=== PATIENT | female | born 1955 | race Caucasian/White ===

== ENCOUNTER 2022-02-07 13:48 | Outpatient (RCR) | payer MEDICARE, SELFPAY | END 2022-08-22 16:00 | disposition home or self-care (01) | LOC: HO.WCC 13:48 | PROVIDERS: PCP Internal Medicine; Visit Provider Surgery | DX: L98.491 Non-pressure chronic ulcer of skin of other sites limited to breakdown of skin (principal); L30.9 Dermatitis, unspecified; F17.210 Nicotine dependence, cigarettes, uncomplicated; F11.20 Opioid dependence, uncomplicated; Z79.2 Long term (current) use of antibiotics | CPT/HCPCS: 97597; 97602; 99212; 99213; 99214 ==

== ENCOUNTER 2023-07-03 00:02 | Emergency (ER) | payer MEDICARE, SELFPAY ==
[2023-07-03 00:44] VITALS: BP 138/85; PULSE 84; RESP 16; TEMP 36.6; O2SAT 95; BMI 34.3
--- NOTE | 2023-07-03 01:52 | PC.NURSE ---
Pt presented to registration asking to speak to someone in the back and was directed to this RN. Pt stated this is taking to long, everyone else has gone but me . RN apologized for the inconvenience and made her aware that staff is trying to move as fast as they can at this time. Pt has been present in the ER for less than 2 hours. She asked if she would be seen within the next hour and this RN attempted to explain that I could not confirm that for her as I am unsure how long it would take for the provider to see her. This RN offered to speak with the primer charger on her behalf to try and get more information regarding an estimate as to when she will be brought back to a room but she declined. After leaving triage, the pt could be heard saying honey come on lets go this is going to take too long . The pt was awake and alert, ambulating with cane and conversing in full/complete sentences. She was observed to ambulate out of the ed with cane with gait identified as baseline from previous observations in triage.
== END 2023-07-03 01:55 | disposition left against medical advice (07) ==
LOC: HO.ED 01:57
PROVIDERS: Emergency Provider Emergency Medicine; PCP Internal Medicine
DX: M79.601 Pain in right arm (principal)
CPT/HCPCS: 99281

== ENCOUNTER 2023-12-10 10:26 | Emergency (ER) | payer MEDICARE, SELFPAY ==
--- NOTE | ~2023-12-10 | XR_ITS ---
EXAMINATION: XR FOOT, LEFT CLINICAL INFORMATION: Tripped on rug at her doctor's office one week ago COMPARISON: None available. TECHNIQUE: AP, lateral, and oblique views of the left foot. FINDINGS: There is marked soft tissue swelling on the dorsum of the foot however some of this may be secondary to adipose tissue. Please correlate clinically. There is a short fourth metatarsal and fourth digit. There is no ankle joint effusion. No acute fractures are seen. No significant arthritic changes are present. XR/XR foot LT min 3V IMPRESSION: No evidence of an acute osseous injury. Marked soft tissue swelling on the dorsum of the foot.
[2023-12-10 10:28] VITALS: BP 162/74; PULSE 66; RESP 16; TEMP 36.6; O2SAT 96; BMI 29.5
--- NOTE | 2023-12-10 12:57 | ED.GENADULT ---
HPI - General Adult General Chief complaint: Extremity Injury, Lower Stated complaint: trip inj to l foot Time Seen by Provider: 12/10/23 12:56 Source: patient Mode of arrival: ambulatory Limitations: no limitations History of Present Illness ED Provider: dianne DISLA narrative: Patient is a 68-year-old female presenting to the emergency department with complaint of ongoing left foot pain and swelling after she tripped on a rug and hit her foot against the coffee table 6 days ago. She denies head strike or loss of consciousness at the time of the fall. She denies neck or back pain. She has not anticoagulated. She reports that she has chronic swelling to her left lower leg and that this is not new. Her only complaint at this time is pain and swelling to the lateral aspect of her left foot. Denies any weakness, numbness, tingling. Has been able to ambulate without difficulty. complaint: Left foot pain Onset (ago): day(s) Radiation: non-radiation Severity: moderate Quality: aching Pain Consistency: constant Relieving factors: rest Exacerbating factors: movement Associated symptoms: denies other symptoms Treatments prior to arrival: other (Tylenol) Related Data Allergies Allergy/AdvReac Type Severity Reaction Status Date / Time No Known Allergies Allergy Unknown Verified 12/10/23 10:30 Review of Systems Review of Systems: As per HPI. Yes all other systems are reviewed and are negative Constitutional: Constitutional: Reports as per HPI [facility] Social History Social History Smoked in Last 30 Days: No Use of substances other than those prescribed or required for medical reasons: No Advance Directives: No Advance Directives Information Provided: Yes Physical Exam ED Vital Signs: Vital Signs - 24 hr 12/10/23 10:28 Temperature 98 F Pulse Rate 66 Respiratory Rate 16 Blood Pressure 162/74 H Pulse Oximetry 96 Oxygen Delivery Method Room Air BMI result Body Mass Index 29.5 Vital signs have been reviewed and appear to be correct. Blood pressure elevated. Heart rate normal. Respiratory rate normal. Temperature normal. Oxygen saturation normal. Const General: cooperative, healthy appearing and no acute distress Orientation/consciousness: oriented to person, oriented to place, oriented to time and patient oriented x3 Limitations: no limitations HENMT Head: Yes normocephalic and Yes atraumatic Ears: external ears normal General nose exam: Normal external nose present Face and sinus: Yes face symmetric Mouth: oropharynx normal and moist mucous membranes Throat: Yes uvula midline Eyes Pupils: Equal, round and reactive pupils present Neck Neck: Yes normal visual inspection and Yes supple Resp Effort & Inspection: normal respiratory effort and able to speak in complete sentences Auscultation: clear to auscultation bilaterally Cardio Rate: regular rate Rhythm: regular rhythm Heart sounds: S1 normal heart sound present and S2 normal heart sound present GI Palpation (GI): Soft to palpation and nontender Auscultation: normoactive bowel sounds General: Yes no CVA tenderness Back/Spine/Pelvis Back: no CVA tenderness Skin General skin exam: elasticity normal and turgor normal Neuro General: oriented to person, oriented to place, oriented to time, patient oriented x3, moves all extremities, no focal motor deficits and CN's II-XI intact bilaterally Cranial nerves: Yes Equal, round and reactive pupils present Cognition (Neuro): normal cognition Extrem General: Yes full ROM, Yes no pedal edema and Yes no calf tenderness Left lower extremity: lower leg Details: non-pitting edema (patient states at baseline); no tenderness and no unusual warmth and foot Details: normal capillary refill, tenderness Location: of the dorsal foot Location: laterally, toes with normal ROM, ecchymosis dorsal 2nd toe Details: single and vascular exam Details: dorsalis pedis pulse present and posterior tibial pulse present Psych Mental Status: mental status grossly normal Affect: normal affect Thought process: Normal thought process present Medical Decision Making Medical Decision Making MDM Narrative: Patient is a 68-year-old female presenting to the emergency department with complaint of ongoing left foot pain and swelling after she tripped on a rug and hit her foot against the coffee table 6 days ago. On exam patient is awake, A+Ox3, BP elevated, hx HTN, VS otherwise WNL, afebrile, normal neurological exam without focal deficits, physical exam findings as above. Given reported symptoms and physical exam findings, initial differential includes left foot contusion versus fracture. X-ray left foot notable for no acute fractures. My interpretation is in agreement with the radiologist's interpretation. Patient updated on results and all questions answered. Loyd wrap applied in the ED with positive CMS distal after application of wrap. Advised patient to keep foot elevated while at rest, apply ice intermittently, Tylenol for pain. Return precautions discussed. Instructed patient to follow-up with PCP. Patient verbalized understanding of and agreement with plan. Differential Diagnosis Differential Diagnoses: The differential diagnosis associated with the presentation includes As per MDM. Independent Interpretation I performed an independent interpretation of an: Plain X-Ray Interpretation: No acute fracture left foot. Radiology Impression Discussion of test interpretation with radiology: I have reviewed the radiologist's reading. Radiologist Impression: XR/XR foot LT min 3V IMPRESSION: No evidence of an acute osseous injury. Marked soft tissue swelling on the dorsum of the foot. External Record Review External record reviewed: Inpatient record, Office record and Outpatient record Discharge Plan Discharge Clinical Impression: Contusion of foot, left Patient Disposition: Home, Self-Care Instructions: Foot Contusion (ED) Additional Instructions: You have been evaluated in the emergency department today for left foot pain. Your evaluation did not find evidence of medical conditions requiring emergent intervention at this time and your x-ray did not show evidence of a fracture. We have provided an LOYD wrap for you to use while your foot heals. Please rest, ice, and elevate your foot, and resume normal activities as tolerated. We recommend you take 650mg Tylenol every 6 hours as needed for pain. Please schedule an appointment for follow-up with your primary care provider this week. Return to the emergency department if you experience worsening pain, numbness, tingling, change of color in your foot, or any other concerning symptoms. Print Language: [place]
[2023-12-10 14:32] VITALS: BP 0/0; PULSE 0; RESP 0; TEMP -17.7; TEMP 0; O2SAT 0
== END 2023-12-10 14:33 | disposition home or self-care (01) ==
PROVIDERS: Emergency Provider Emergency Medicine; PCP Internal Medicine
DX: S90.32XA Contusion of left foot, initial encounter (principal); W22.03XA Walked into furniture, initial encounter; Y93.9 Activity, unspecified; Y92.9 Unspecified place or not applicable; Y99.9 Unspecified external cause status
CPT/HCPCS: 73630; 99283; 99284